=== PATIENT | male | born 1995 | race Caucasian/White ===

== ENCOUNTER 2018-10-11 10:06 | Emergency (ER) | payer MEDICAID ==
[2018-10-11] MEDS ORDERED: Carbamide Peroxide 6.5% Otic Soln 15 ML Bottle EARBOTH STA (10:21)
--- NOTE | 2018-10-11 10:21 | EDM.PDOC ---
ED HPI GENERAL MEDICAL PROBLEM - General Chief Complaint: ENT Problem Stated Complaint: RIGHT EARACHE Time Seen by Provider: 10/11/18 10:08 Source of Information: Reports: Patient History Limitations: Reports: No Limitations - History of Present Illness INITIAL COMMENTS - FREE TEXT/NARRATIVE: HISTORY AND PHYSICAL: History of present illness: Patient is a 23-year-old male who presents to the emergency room with right ear pain. He states his ears have been full of wax and has been cleaning them vigorously with a Q-tip. He states after cleaning his right ear he has had increased pain. States his hearing has been muffled. He denies any fever, chills , chest pain or shortness of breath. Denies any GI or symptoms. Review of systems: As per history of present illness and below otherwise all systems reviewed and negative. Past medical history: As per history of present illness and as reviewed below otherwise noncontributory. Surgical history: As per history of present illness and as reviewed below otherwise noncontributory. Social history: See social history for further information Family history: As per history of present illness and as reviewed below otherwise noncontributory. Physical exam: General: Well-developed and well-nourished 23-year-old male. Alert and oriented. Nontoxic appearing and in no acute distress HEENT: Atraumatic, normocephalic, pupils equal and reactive bilaterally, negative for conjunctival pallor or scleral icterus, mucous membranes moist, cerumen impaction to bilateral canals. The right canal I am able to see the upper portion of the TM which is erythematous, throat clear, neck supple, nontender, trachea midline. No drooling or trismus noted. No meningeal signs. No hot potato voice noted. Lungs: Clear to auscultation, breath sounds equal bilaterally, chest nontender. Heart: S1S2, regular rate and rhythm without overt murmur Abdomen: Soft, nondistended, nontender. Negative for masses or hepatosplenomegaly. Negative for costovertebral tenderness. Pelvis: Stable nontender. Genitourinary: Deferred. Rectal: Deferred. Skin: Intact, warm, dry. No lesions or rashes noted. Extremities: Atraumatic, negative for cords or calf pain. Neurovascular unremarkable. Neuro: Awake, alert, oriented. Cranial nerves II through XII unremarkable. Cerebellum unremarkable. Motor and sensory unremarkable throughout. Exam nonfocal. Notes: Debrox applied to both ears. Was able to gently extract cerumen. TM's intact, no perforations noted. We'll treat the right otitis media with Augmentin. Supportive care measures were reviewed and discussed. Voices understanding and is agreeable to plan of care. Denies any further questions or concerns at this time. Diagnostics: Debrox Therapeutics: None Prescription: Augmentin Impression: Cerumen Impaction Bilaterally Otitis Media, Right Plan: 1. Please avoid putting Q-tips in the ear. 2. Take the antibiotic as directed. 3. Follow-up with your primary care provider in the next 1-2 days. Return to the ED as needed and as discussed. Definitive disposition and diagnosis as appropriate pending reevaluation and review of above. Right Ear Pain Score (Numeric/FACES): 3 - Related Data Allergies Allergy/AdvReac Type Severity Reaction Status Date / Time No Known Allergies Allergy Verified 10/11/18 10:18 Home Meds: Home Meds Amoxicillin/Clavulanate K [Augmentin 875-125 MG] 1 tab PO BID 10 Days #20 tablet 10/11/18 [Rx] ED ROS ENT - Review of Systems Review Of Systems: ROS reveals no pertinent complaints other than HPI. ED EXAM, ENT - Physical Exam Exam: See Below (See dictation) Course - Vital Signs Last Recorded V/S: Last Vital Signs Temp 96.6 F 10/11/18 10:20 Pulse 92 10/11/18 10:20 Resp 20 10/11/18 10:20 BP 120/78 10/11/18 10:20 Pulse Ox 98 10/11/18 10:20 - Orders/Labs/Meds Meds: Medications Discontinued Medications Generic Name Dose Route Start Last Admin Trade Name Freq PRN Reason Stop Dose Admin Carbamide Perox/Anhydrous Glycerin 1 ml 10/11/18 10:21 Debrox 6.5% Otic Soln EARBOTH 10/11/18 10:22 NOW STA Departure - Departure Time of Disposition: 10:30 Disposition: Home, Self-Care 01 Clinical Impression: Excessive cerumen in both ear canals Otitis media Qualifiers: Otitis media type: suppurative Chronicity: acute Laterality: right Recurrence: non-recurrent Spontaneous tympanic membrane rupture: without spontaneous rupture Qualified Code(s): H66.001 - Acute suppurative otitis media without spontaneous rupture of ear drum, right ear - Discharge Information Prescriptions: Amoxicillin/Clavulanate K [Augmentin 875-125 MG] 1 tab PO BID 10 Days #20 tablet Referrals: PCP,None [Primary Care Provider] - Forms: ED Department Discharge Additional Instructions: The following information is given to patients seen in the emergency department who are being discharged to home. This information is to outline your options for follow-up care. We provide all patients seen in our emergency department with a follow-up referral. The need for follow-up, as well as the timing and circumstances, are variable depending upon the specifics of your emergency department visit. If you don't have a primary care physician on staff, we will provide you with a referral. We always advise you to contact your personal physician following an emergency department visit to inform them of the circumstance of the visit and for follow-up with them and/or the need for any referrals to a consulting specialist. The emergency department will also refer you to a specialist when appropriate. This referral assures that you have the opportunity for follow-up care with a specialist. All of these measure are taken in an effort to provide you with optimal care, which includes your follow-up. Under all circumstances we always encourage you to contact your private physician who remains a resource for coordinating your care. When calling for follow-up care, please make the office aware that this follow-up is from your recent emergency room visit. If for any reason you are refused follow-up, please contact the [facility] at and asked to speak to the emergency department charge nurse. [facility] [address] [place] [id number] [id number] [facility] [address] [address] 1. Please avoid putting Q-tips in the ear. 2. Take the antibiotic as directed. 3. Follow-up with your primary care provider in the next 1-2 days. Return to the ED as needed and as discussed.
== END 2018-10-11 11:09 | disposition home or self-care (01) ==
LOC: MW.ED 10:06
DX: H61.23 Impacted cerumen, bilateral (principal); H66.001 Acute suppurative otitis media without spontaneous rupture of ear drum, right ear
CPT/HCPCS: 99282; A9270

== ENCOUNTER 2021-10-06 05:59 | Emergency (ER) | payer BC ==
[2021-10-06 07:03] LABS: CORONAVIRUS COVID-19 NAA NEGATIVE (NEGATIVE); INFLUENZA A NAA POSITIVE (NEGATIVE); INFLUENZA B NAA NEGATIVE (NEGATIVE)
== END 2021-10-06 07:29 | disposition home or self-care (01) ==
LOC: MW.ED 05:59
DX: J10.1 Influenza due to other identified influenza virus with other respiratory manifestations (principal); Z86.16 Personal history of COVID-19; Z20.822 Contact with and (suspected) exposure to COVID-19
CPT/HCPCS: 0240U; 71046; 99284

== ENCOUNTER 2023-09-21 18:06 | Emergency (ER) | payer BC ==
[2023-09-21 19:32] LABS: CORONAVIRUS COVID-19 NAA NEGATIVE (NEGATIVE); INFLUENZA A NAA NEGATIVE (NEGATIVE); INFLUENZA B NAA POSITIVE (NEGATIVE); RESPIRATORY SYNCYTIAL VIR NAA NEGATIVE (NEGATIVE)
== END 2023-09-21 19:31 | disposition home or self-care (01) ==
LOC: MW.ED 18:06
DX: R05.9 Cough, unspecified (principal); Z86.16 Personal history of COVID-19
CPT/HCPCS: 0241U; 99283; 99282

== ENCOUNTER 2023-11-30 16:53 | Emergency (ER) | payer BC ==
[2023-11-30] MEDS ORDERED: Sodium Chloride 0.9% 10 ML Syringe FLUSH PRN (16:59)
[2023-11-30] MEDS ORDERED: Sodium Chloride 0.9% 2.5 ML Syringe FLUSH PRN (16:59)
[2023-11-30] MEDS: Lidocaine 4% 1 each Patch TOP ONE (17:31)
[2023-11-30] MEDS: Ketorolac 30 MG/ML SDV IM ONE (17:31)
== END 2023-11-30 18:45 | disposition home or self-care (01) ==
LOC: MW.ED 16:53
DX: S20.221A Contusion of right back wall of thorax, initial encounter (principal); Z79.899 Other long term (current) drug therapy; Z75.8 Other problems related to medical facilities and other health care; W11.XXXA Fall on and from ladder, initial encounter
CPT/HCPCS: 71101; 96372; 99283; A9270; J1885

== ENCOUNTER 2024-03-04 13:15 | Emergency (ER) | payer OTHER, BC ==
[2024-03-04] MEDS ORDERED: traMADol 50 MG Tab PO STA (14:27)
[2024-03-04] MEDS: Acetaminophen 500 MG Tab PO STA (15:03)
[2024-03-04] MEDS: Ibuprofen 800 MG Tab PO STA (15:04)
== END 2024-03-04 15:55 | disposition home or self-care (01) ==
LOC: MW.ED 13:15
DX: S09.90XA Unspecified injury of head, initial encounter (principal); M25.561 Pain in right knee; V58.0XXA Driver of pick-up truck or van injured in noncollision transport accident in nontraffic accident, initial encounter; Y92.410 Unspecified street and highway as the place of occurrence of the external cause; Z75.8 Other problems related to medical facilities and other health care
CPT/HCPCS: 70450; 72125; 73502; 73552; 73562; 99284; A9270; 99283

== ENCOUNTER 2024-09-19 22:47 | Emergency (ER) | payer BC | END 2024-09-20 02:22 | disposition home or self-care (01) | LOC: MW.ED 22:47 | DX: J40 Bronchitis, not specified as acute or chronic (principal); R05.1 Acute cough; Z79.899 Other long term (current) drug therapy | CPT/HCPCS: 87428-QW; 99283 ==